=== PATIENT | male | born 1965 | race Caucasian/White ===

== ENCOUNTER 2017-08-11 21:37 | Emergency (ER) | payer SELFPAY ==
[~2017-08-11] VITALS: Ht 172.7 cm; Wt 95.3 kg
--- NOTE | 2017-08-11 22:05 | NUR ---
PT BB SELF FROM HOME WITH C/O OF L TESTCLE PAIN AND SWELLING X1 DAY. PT ALSO STATES "MY URINE SMELLS BAD AND MY TESTICLE IS THE SIZE OF A LEMON." L TESTICLE NOTED TO BE ENLARGED AND RED IN COLOR. PT IS AAOX4. RESP EVEN AND NONE LABORED. SKIN PINK AND WARM. NO S/S OF ACUTE DISTRESS NOTED. PT AMBULATED WITH STEADY GAIT TO ER BED 6. AWAITING MD FOR EVAL.
--- NOTE | 2017-08-11 22:10 | NUR ---
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
[2017-08-11 22:21] LABS: APPEARANCE,URINE SL CLOUDY (CLEAR); BILIRUBIN,URINE NEGATIVE (NEGATIVE); BLOOD, URINE NEGATIVE Ery/uL (NEGATIVE); KETONES,URINE NEGATIVE (NEGATIVE); LEUKOCYTE ESTERASE ,URINE 2+ (NEGATIVE); NITRITE, URINE POSITIVE (NEGATIVE); PROTEIN,URINE NEGATIVE (NEGATIVE); UGLUCOSE NEGATIVE (NEGATIVE); UROBILINOGEN,URINE 0.2 EU/dL (0.2)
[2017-08-11 22:23] LABS: COLOR,URINE DARK YELLOW (YELLOW)
[2017-08-11 22:25] LABS: BACTERIA,URINE Many /HPF (None Seen); RBC,URINE 0-2 /HPF (0-2); WBC,URINE 51-80 /HPF (0-3)
[2017-08-11 22:26] LABS: SQUAMOUS EPITHELIAL CELL,UR Few /HPF (None Seen)
--- NOTE | 2017-08-11 22:41 | NUR ---
MANAGER PAYMENT OUT OF PT ROOM.
[2017-08-11] MEDS ORDERED: LEVOFLOXACIN (500MG) 500 MG TABLET PO ONE (23:00)
[2017-08-11] MEDS ORDERED: HYDROCODONE/APAP 5/325MG 1 EACH TABLET PO ONE (23:00)
[2017-08-11] MEDS ORDERED: HYDROCODONE/APAP 5/325MG 1 EACH TABLET ONE (23:07)
[2017-08-11] MEDS ORDERED: LEVOFLOXACIN (500MG) 500 MG TABLET ONE (23:07)
--- NOTE | 2017-08-11 23:21 | NUR ---
Patient discharged to home in stable condition. Written and verbal after care instructions ALONG WITH rx given. Patient verbalizes understanding of instruction. PT AMBULATED WITH STEADY GAIT OUT OF ER. VSS. INSTRUCTED NOT TO DRIVE. STATES SHE WILL BE DRIVING.
[2017-08-11 23:23] VITALS: BP 151/91
== END 2017-08-11 23:24 | disposition home or self-care (01) ==
LOC: ER 21:42
DX: N45.1 Epididymitis (principal); F17.200 Nicotine dependence, unspecified, uncomplicated; Z90.89 Acquired absence of other organs
CPT/HCPCS: 76870; 81001; 87077; 87086; 87186; 99285; A4606; Z7610; 81000-TC

== ENCOUNTER 2023-07-11 08:08 | Inpatient (IN) | payer MEDICAID ==
[~2023-07-11] VITALS: Ht 170.2 cm; Wt 80.7 kg
[2023-07-11] MEDS ORDERED: ASPIRIN 325 MG TABLET ONE (08:45)
[2023-07-11] MEDS ORDERED: NITROGLYCERIN PACKET 1 GM PACKET ONE (08:45)
[2023-07-11] MEDS ORDERED: METOPROLOL TARTRATE 25 MG TABLET ONE (08:53)
[2023-07-11 08:54] LABS: BASOPHILS % (AUTO) 0.5 % (0.0-2.0); EOSINOPHILS # (AUTO) 0.2 K/uL (0.0-0.7); EOSINOPHILS % (AUTO) 2.1 % (0.0-6.0); HEMATOCRIT 47 % (39-51); HEMOGLOBIN 16.1 g/dL (13.5-17.5); LYMPHOCYTES # (AUTO) 2.9 K/uL (0.8-4.8); MEAN CORPUSCULAR HEMOGLOBIN 29 PG (26.0-33.0); MEAN CORPUSCULAR HGB CONC 34 g/dl (31.0-36.0); MEAN CORPUSCULAR VOLUME 86 fL (80-96); MONOCYTES # (AUTO) 0.7 K/uL (0.1-1.30); MONOCYTES % (AUTO) 7.4 % (2.0-12.0); NEUTROPHILS # (AUTO) 5.4 K/uL (1.8-8.9); PLATELET COUNT (AUTO) 173 K/uL (150-450); RED BLOOD CELL COUNT(AUTO) 5.49 MIL/uL (4.5-6.0); RED CELL DISTRIBUTION WIDTH 13.8 % (11.5-15.0); WHITE BLOOD COUNT (AUTO) 9.2 K/uL (4.3-11.0)
[2023-07-11] MEDS ORDERED: ASPIRIN 325 MG TABLET PO ONE (09:00)
[2023-07-11] MEDS ORDERED: METOPROLOL TARTRATE 25 MG TABLET PO ONE (09:00)
[2023-07-11] MEDS ORDERED: METOPROLOL TARTRATE INJ 5 MG/5 ML AMPUL IV ONE (09:00)
[2023-07-11] MEDS ORDERED: LABETALOL HCL IV 100MG VIAL IV ONE (09:00)
[2023-07-11] MEDS ORDERED: NITROGLYCERIN PACKET 1 GM PACKET TD ONE (09:00)
[2023-07-11 09:09] LABS: CALCIUM, SERUM 8.8 mg/dL (8.5-10.1); CARBON DIOXIDE 25 mmol/L (21-32); CHLORIDE 106 mmol/L (98-107); GLUCOSE 101 mg/dL (74-106); POTASSIUM 3.9 mmol/L (3.5-5.1); SODIUM SERUM 139 mmol/L (136-145); UREA NITROGEN, BLOOD 13 mg/dL (7-18)
[2023-07-11] MEDS ORDERED: IBUP200C5 PO (10:15)
[2023-07-11] MEDS ORDERED: IOHEXOL-350 100 ML VIAL IV ONE (10:18)
[2023-07-11] MEDS ORDERED: CT SWABBABLE VALVE TRANS SET 1 EA INFUS.SET MC ONE (10:19)
[2023-07-11] MEDS ORDERED: IV NS 0.9% 250 ML IV ONE (10:19)
[2023-07-11] MEDS ORDERED: ZOLPIDEM TARTRATE 5 MG TABLET PO PRN ×2 (10:30→17:30)
[2023-07-11] MEDS ORDERED: ONDANSETRON HCL/PF 4 MG/2 ML VIAL IVP PRN ×2 (10:30→17:30)
[2023-07-11] MEDS ORDERED: IV NS 0.9% 1,000 ML IV PRN (10:30)
[2023-07-11] MEDS ORDERED: MAGNESIUM HYDROXIDE 30 ML UDC PO PRN ×2 (10:30→17:30)
[2023-07-11] MEDS ORDERED: Z GUARD REMEDY 4 OZ OINT TP PRN ×2 (10:30→17:30)
[2023-07-11] MEDS ORDERED: MAG HYDROX/AL HYDROX/SIMETH 30 ML UDC PO PRN ×2 (10:30→17:30)
[2023-07-11] MEDS ORDERED: ACETAMINOPHEN 325 MG TABLET PO PRN ×2 (10:30→17:30)
[2023-07-11] MEDS: ENOXAPARIN SODIUM 80 MG/0.8 ML DISP.SYRIN SQ SCH (17:00)
[2023-07-11] MEDS ORDERED: ASPIRIN 81 MG TAB.CHEW ONE (17:01)
[2023-07-11] MEDS ORDERED: ENOXAPARIN SODIUM 80 MG/0.8 ML DISP.SYRIN SQ ONE (17:13)
[2023-07-11] MEDS ORDERED: METOPROLOL TARTRATE 50 MG TABLET ONE (17:14)
[2023-07-11 17:26] VITALS: O2SAT 97
[2023-07-11] MEDS: METOPROLOL TARTRATE 50 MG TABLET PO SCH (17:39)
[2023-07-11 20:00] VITALS: BP 127/86; TEMP 98.6; O2SAT 97
[2023-07-12] VITALS: BP 115/75; TEMP 98.9; O2SAT 96
[2023-07-12] MEDS: METOPROLOL TARTRATE 50 MG TABLET PO SCH ×2 (00:20→06:00)
[2023-07-12 00:45] VITALS: BP 115/78; TEMP 98.9
[2023-07-12 04:00] VITALS: BP 110/66; TEMP 98.6; O2SAT 94
[2023-07-12 07:20] LABS: BASOPHILS % (AUTO) 0.4 % (0.0-2.0); EOSINOPHILS # (AUTO) 0.1 K/uL (0.0-0.7); EOSINOPHILS % (AUTO) 1.4 % (0.0-6.0); HEMATOCRIT 45 % (39-51); HEMOGLOBIN 15.4 g/dL (13.5-17.5); LYMPHOCYTES # (AUTO) 2.9 K/uL (0.8-4.8); LYMPHOCYTES % (AUTO) 28.3 % (20.0-44.0); MEAN CORPUSCULAR HEMOGLOBIN 30 PG (26.0-33.0); MEAN CORPUSCULAR HGB CONC 34 g/dl (31.0-36.0); MEAN CORPUSCULAR VOLUME 86 fL (80-96); MONOCYTES # (AUTO) 0.6 K/uL (0.1-1.30); NEUTROPHILS # (AUTO) 6.6 K/uL (1.8-8.9); NEUTROPHILS % (AUTO) 63.9 % (43.0-81.0); PLATELET COUNT (AUTO) 163 K/uL (150-450); RED CELL DISTRIBUTION WIDTH 13.8 % (11.5-15.0); WHITE BLOOD COUNT (AUTO) 10.3 K/uL (4.3-11.0)
[2023-07-12 07:53] LABS: CALCIUM, SERUM 9.1 mg/dL (8.5-10.1); CREATININE 0.9 mg/dL (0.6-1.3); MAGNESIUM 2.2 mg/dL (1.8-2.4); PHOSPHORUS 3.9 mg/dL (2.5-4.9); POTASSIUM 3.8 mmol/L (3.5-5.1)
[2023-07-12 08:00] VITALS: BP 117/80; TEMP 97.9; O2SAT 94
[2023-07-12] MEDS ORDERED: ATORVASTATIN 40 MG TABLET PO SCH (09:00)
[2023-07-12] MEDS ORDERED: ASPIRIN 81 MG TAB.CHEW PO SCH ×3 (09:00)
[2023-07-12] MEDS: ENOXAPARIN SODIUM 80 MG/0.8 ML DISP.SYRIN SQ SCH (09:00)
== END 2023-07-12 10:20 | disposition short-term general hospital (02) | DRG 190 ==
LOC: ER 08:11 → TELE 18:27
PROVIDERS: ADMIT Nurse Practitioner Acute Care; ATTEND Internal Medicine
DX: I21.4 Non-ST elevation (NSTEMI) myocardial infarction (principal); E78.00 Pure hypercholesterolemia, unspecified; I25.10 Atherosclerotic heart disease of native coronary artery without angina pectoris; Z90.49 Acquired absence of other specified parts of digestive tract; E78.5 Hyperlipidemia, unspecified; F17.210 Nicotine dependence, cigarettes, uncomplicated
CPT/HCPCS: 36415; 71045-TC; 75574; 80048-TC; 80061-TC; 83735-TC; 84100-TC; 84484-TC; 85025-TC; 93307-TC; G0378; J1650; J7050; Q9967